=== PATIENT | male | born 1990 | race Caucasian/White ===

== ENCOUNTER 2022-07-12 06:38 | Emergency (ER) | payer MEDICAID ==
[~2022-07-12] VITALS: Ht 170.2 cm; Wt 77.0 kg
[2022-07-12] MEDS ORDERED: IBUPROFEN 600MG TABLET PO STA (06:46)
[2022-07-12 08:21] VITALS: BP 126/79
== END 2022-07-12 08:22 | disposition home or self-care (01) ==
LOC: ER 06:55
DX: R07.89 Other chest pain (principal)
CPT/HCPCS: 71045; 93005; 99283

== ENCOUNTER 2023-03-28 18:29 | Emergency (ER) | payer MEDICAID ==
[~2023-03-28] VITALS: Ht 182.9 cm; Wt 120.0 kg
[2023-03-28 18:44] VITALS: BP 117/76; PULSE 78; RESP 18; TEMP 98.2; O2SAT 97
[2023-03-28 20:32] LABS: BASOPHILS % 0.7 % (0.0-2.0); EOSINOPHILS % 2.2 % (0.0-5.0); HEMOGLOBIN. 12.3 g/dL (14.0-18.0); LYMPHOCYTES % 40.6 % (20.0-50.0); MEAN CORPUSCULAR HEMOGLOBIN 27.9 pg (28.0-32.0); MEAN CORPUSCULAR HGB CONC 33.3 g/dL (31.0-37.0); MEAN CORPUSCULAR VOLUME 83.9 fL (80.0-94.0); MEAN PLATELET VOLUME 8.2 fl (7.4-10.4); MONOCYTES % 7.7 % (2.0-8.0); NEUTROPHILS % 48.8 % (40.0-76.0); PLATELET 291 x1000/uL (130-400); RED BLOOD CELL COUNT 4.42 mill/uL (4.7-6.1); RED CELL DISTRIBUTION WIDTH 13.5 % (11.6-14.6); WHITE BLOOD COUNT 9.1 x1000/uL (4.5-11.0)
[2023-03-28 20:49] LABS: ALANINE AMINOTRANSFERASE 22 IU/L (10-49); ALBUMIN 3.7 g/dL (3.2-4.8); ASPARTATE AMINOTRANSFERASE 14 IU/L (<34); BILIRUBIN TOTAL 0.3 mg/dL (0.1-1.0); CALCIUM 8.4 mg/dL (8.7-10.4); CARBON DIOXIDE 28 mEq/L (21-32); CHLORIDE 107 mEq/L (98-107); CREATININE 0.6 mg/dL (0.6-1.3); GLUCOSE 99 mg/dL (70-105); POTASSIUM 3.8 mEq/L (3.5-5.1); SODIUM 138 mEq/L (136-145); UREA NITROGEN BLOOD 8 mg/dL (9-23)
[2023-03-28 20:50] LABS: TROPONIN I HIGH SENSITIVITY < 4 ng/L (3.0-53)
[2023-03-28 20:55] LABS: INR 0.9; PROTHROMBIN TIME 10.1 sec (9.6-11.0)
[2023-03-28] MEDS ORDERED: ACET-2708 MT (20:58)
== END 2023-03-28 21:27 | disposition home or self-care (01) ==
LOC: ER 18:29
DX: R07.9 Chest pain, unspecified (principal)
CPT/HCPCS: 36415; 71045; 72170; 80053; 84484; 85025; 93005; 99285

== ENCOUNTER 2023-11-21 00:03 | Emergency (ER) | payer MEDICAID, OTHER ==
[~2023-11-21] VITALS: Ht 170.2 cm; Wt 114.0 kg
[~2023-11-21 00:03] MED LIST: ACET-2708 MT
[2023-11-21 00:07] VITALS: O2SAT 100
[2023-11-21 02:21] LABS: EOSINOPHILS % 0.9 % (0.0-5.0); HEMATOCRIT. 37.3 % (42.0-52.0); HEMOGLOBIN. 12.6 g/dL (14.0-18.0); LYMPHOCYTES % 32.5 % (20.0-50.0); MEAN CORPUSCULAR HEMOGLOBIN 28.7 pg (28.0-32.0); MEAN CORPUSCULAR HGB CONC 33.8 g/dL (31.0-37.0); MEAN PLATELET VOLUME 8.9 fl (7.4-10.4); MONOCYTES % 6.8 % (2.0-8.0); NEUTROPHILS % 58.8 % (40.0-76.0); PLATELET 338 x1000/uL (130-400); RED BLOOD CELL COUNT 4.39 mill/uL (4.7-6.1); RED CELL DISTRIBUTION WIDTH 13.6 % (11.6-14.6); WHITE BLOOD COUNT 10.6 x1000/uL (4.5-11.0)
[2023-11-21 02:39] LABS: CHLORIDE 111 mEq/L (98-107); POTASSIUM 3.4 mEq/L (3.5-5.1); SODIUM 141 mEq/L (136-145)
[2023-11-21 02:40] LABS: CARBON DIOXIDE 27 mEq/L (21-32)
[2023-11-21 02:41] LABS: CALCIUM 9.3 mg/dL (8.7-10.4)
[2023-11-21 02:46] LABS: CREATININE 0.6 mg/dL (0.6-1.3); GLUCOSE 94 mg/dL (70-105)
[2023-11-21 02:47] LABS: TROPONIN I HIGH SENSITIVITY 6 ng/L (3.0-53)
[2023-11-21 03:30] LABS: UREA NITROGEN BLOOD < 5 mg/dL (9-23)
[2023-11-21 04:40] VITALS: BP 128/72; PULSE 70; RESP 19; TEMP 36.66960; O2SAT 97
== END 2023-11-21 04:40 | disposition home or self-care (01) ==
LOC: ER 00:03
DX: R07.9 Chest pain, unspecified (principal); F41.9 Anxiety disorder, unspecified
CPT/HCPCS: 36415; 71045; 80048; 84484; 85025; 99284